=== PATIENT | female | born 1980 | race Caucasian/White ===

== ENCOUNTER 2017-01-18 17:11 | Emergency (ER) | payer MEDICARE ==
[2017-01-18] MEDS ORDERED: traMADol HCl 50 MG TAB ONE (18:08)
== END 2017-01-18 18:20 | disposition home or self-care (01) ==
LOC: MADERS 17:11
DX: T63.441A Toxic effect of venom of bees, accidental (unintentional), initial encounter (principal); F17.210 Nicotine dependence, cigarettes, uncomplicated
CPT/HCPCS: 96372; J1040

== ENCOUNTER 2018-03-05 16:21 | Emergency (ER) | payer MEDICARE ==
[2018-03-05] MEDS ORDERED: Adacel (T-DAP) 0.5 ML VIAL ONE (16:42)
[2018-03-05] MEDS ORDERED: HYDROcodone/Acetaminophen 5/325 mg Tablet ONE (16:42)
[2018-03-05] MEDS ORDERED: Acetaminophen 325 MG TAB ONE (16:42)
== END 2018-03-05 17:10 | disposition home or self-care (01) ==
LOC: MADERS 16:21
DX: S01.01XA Laceration without foreign body of scalp, initial encounter (principal); E11.9 Type 2 diabetes mellitus without complications; F17.210 Nicotine dependence, cigarettes, uncomplicated; W22.8XXA Striking against or struck by other objects, initial encounter
CPT/HCPCS: 12001; 90471; 90715

== ENCOUNTER 2018-06-10 18:02 | Emergency (ER) | payer MEDICARE ==
[2018-06-10] MEDS ORDERED: Adacel (T-DAP) 0.5 ML VIAL ONE (18:16)
[2018-06-10] MEDS ORDERED: Amoxicillin/Potassium Clav 875 MG TAB ONE (18:16)
[2018-06-10] MEDS ORDERED: Ibuprofen 800 MG TAB ONE (18:33)
== END 2018-06-10 18:30 | disposition home or self-care (01) ==
LOC: MADERS 18:02
DX: S51.852A Open bite of left forearm, initial encounter (principal); E11.9 Type 2 diabetes mellitus without complications; F17.210 Nicotine dependence, cigarettes, uncomplicated; Z79.84 Long term (current) use of oral hypoglycemic drugs; Z79.899 Other long term (current) drug therapy; W54.0XXA Bitten by dog, initial encounter
CPT/HCPCS: 90471; 90715

== ENCOUNTER 2018-07-03 12:33 | Emergency (ER) | payer MEDICARE ==
[2018-07-03 14:26] LABS: CKMB 1.6 ng/mL (0-6.6); Troponin I Less than 0.010 ng/mL (< 0.028)
--- NOTE | 2018-07-03 14:48 | RAD ---
CHEST TWO VIEWS: INDICATIONS: Cough. FINDINGS: There is patchy bilateral perihilar opacification. No effusion or discrete pneumothorax. The cardia c silhouette is normal in size. The osseous structures are intact. IMPRESSION: Patchy bilateral perihilar opacities may reflect bronchiolitis or edema. Recommend clinical correlation and, as necessary, imaging followup may be obtained. POS: DIANA
== END 2018-07-03 14:50 | disposition home or self-care (01) ==
LOC: MADERS 12:33
DX: J18.9 Pneumonia, unspecified organism (principal); E11.9 Type 2 diabetes mellitus without complications; F17.210 Nicotine dependence, cigarettes, uncomplicated; Z79.84 Long term (current) use of oral hypoglycemic drugs; Z79.899 Other long term (current) drug therapy
CPT/HCPCS: 36415; 71046; 82553; 84484; 87804; 93005

== ENCOUNTER 2018-07-08 09:04 | Emergency (ER) | payer MEDICARE ==
--- NOTE | 2018-07-08 10:43 | RAD ---
CHEST TWO VIEWS: Comparison: 07-03-18 History: Cough. Dyspnea. FINDINGS: Normal cardiac silhouette. The pulmonary vessels and hilum are normal. Costophrenic angles are clear. Stable interstitial changes without consolidation or mass. No pneumothorax or osseous abnormality. IMPRESSION: No acute cardiopulmonary process. POS: SHELDON
== END 2018-07-08 11:00 | disposition home or self-care (01) ==
LOC: MADERS 09:04
DX: J44.1 Chronic obstructive pulmonary disease with (acute) exacerbation (principal); E11.9 Type 2 diabetes mellitus without complications; F17.210 Nicotine dependence, cigarettes, uncomplicated
CPT/HCPCS: 71046; 87804; 93005; 94640; 94760; J7620

== ENCOUNTER 2019-10-14 12:36 | Emergency (ER) | payer MEDICARE ==
--- NOTE | 2019-10-14 13:49 | RAD ---
CHEST 2 VIEWS: Date: 10/14/2019 HISTORY: Cough, fever, wheezing. COMPARISON: Radiograph dated 07/08/18. FINDINGS: Abnormal increased interstitial markings throughout the lungs. No pneumothorax. No effusion. No acute osseous abnormality. IMPRESSION: Findings of reactive airway disease versus viral bronchial infectious process. POS: CET
== END 2019-10-14 13:19 | disposition home or self-care (01) ==
LOC: MADERS 12:36
DX: J11.1 Influenza due to unidentified influenza virus with other respiratory manifestations (principal); R06.2 Wheezing; E11.9 Type 2 diabetes mellitus without complications; F17.210 Nicotine dependence, cigarettes, uncomplicated
CPT/HCPCS: 36416; 71046; J7620

== ENCOUNTER 2020-01-10 14:36 | Emergency (ER) | payer MEDICARE | END 2020-01-10 15:20 | disposition home or self-care (01) | LOC: MADERS 14:36 | DX: K02.9 Dental caries, unspecified (principal); E78.5 Hyperlipidemia, unspecified; I10 Essential (primary) hypertension; E11.9 Type 2 diabetes mellitus without complications; F17.210 Nicotine dependence, cigarettes, uncomplicated | CPT/HCPCS: 99282 ==

== ENCOUNTER 2020-05-14 12:09 | Emergency (ER) | payer MEDICARE ==
--- NOTE | 2020-05-14 12:43 | RAD ---
XR Hand Rt 3 View STANDARD HISTORY: Right hand pain FINDINGS: No acute fracture or dislocation is identified. There is an old fracture of the ulnar styloid.
== END 2020-05-14 13:24 | disposition home or self-care (01) ==
LOC: MADERS 12:09
DX: M79.641 Pain in right hand (principal); E78.5 Hyperlipidemia, unspecified; I10 Essential (primary) hypertension; E11.9 Type 2 diabetes mellitus without complications; F17.210 Nicotine dependence, cigarettes, uncomplicated; Z79.899 Other long term (current) drug therapy

== ENCOUNTER 2021-01-21 09:01 | Emergency (ER) | payer MEDICARE | END 2021-01-21 10:00 | disposition home or self-care (01) | LOC: MADERS 09:01 | DX: K08.89 Other specified disorders of teeth and supporting structures (principal); K02.9 Dental caries, unspecified; E78.5 Hyperlipidemia, unspecified; I10 Essential (primary) hypertension; E11.9 Type 2 diabetes mellitus without complications; F17.210 Nicotine dependence, cigarettes, uncomplicated; Z79.899 Other long term (current) drug therapy | CPT/HCPCS: 99283 ==

== ENCOUNTER 2021-04-07 14:08 | Emergency (ER) | payer MEDICARE, MEDICAID ==
[2021-04-07 17:00] LABS: #Basophils 0.1 thou/uL (0.0-0.2); #Eosinphils 0.1 thou/uL (0.0-0.7); #Lymphocytes 2.6 thou/uL (1.20-3.40); #Monocytes 0.5 thou/uL (0.11-0.59); #Neutrophils 6.7 thou/uL (1.40-6.50); %Basophils 0.7 % (0.0-1.0); %Eosinophils 1.4 % (0.0-10.0); %Lymphocytes 26.1 % (21.0-51.0); %Monocytes 4.7 % (0.0-10.0); Hemoglobin 14.7 g/dL (12.0-16.0); Mean Corpuscular HGB CONC 31.5 g/dL (32.0-36.0); Mean Corpuscular Hemoglobin 29.2 pg (27.0-31.0); Mean Corpuscular Volume 92.7 fL (78.0-98.0); Mean Platelet Volume 9.5 fL (7.4-10.4); Platelet Count 233 thou/uL (130-400); RBC Distribution Width 13.1 % (11.5-14.5); Red Blood Cell (RBC) Count 5.04 mill/uL (4.20-5.40)
[2021-04-07 17:11] LABS: Anion Gap 16 mmol/L (10-20); BUN (Urea Nitrogen) Less than 4 mg/dL (7.0-18.7); Calc. Creatinine Clearance 0 mL/min (70-130); Carbon Dioxide 24 mmol/L (22-29); Chloride 105 mmol/L (98-107); Glucose 84 mg/dL (70-105); Potassium 3.6 mmol/L (3.5-5.1); Sodium 141 mmol/L (136-145)
== END 2021-04-07 18:26 | disposition home or self-care (01) ==
LOC: MADERS 14:08
DX: M48.02 Spinal stenosis, cervical region (principal); E11.9 Type 2 diabetes mellitus without complications; I10 Essential (primary) hypertension; E78.5 Hyperlipidemia, unspecified; F17.210 Nicotine dependence, cigarettes, uncomplicated; R29.700 NIHSS score 0; Z79.899 Other long term (current) drug therapy
CPT/HCPCS: 36415; 70450; 72125; 80048; 85025

== ENCOUNTER 2022-04-20 11:02 | Emergency (ER) | payer MEDICARE, MEDICAID | END 2022-04-20 11:57 | disposition home or self-care (01) | LOC: MADERS 11:02 | DX: J06.9 Acute upper respiratory infection, unspecified (principal); E11.9 Type 2 diabetes mellitus without complications; I10 Essential (primary) hypertension; E78.5 Hyperlipidemia, unspecified; F17.210 Nicotine dependence, cigarettes, uncomplicated; Z79.899 Other long term (current) drug therapy | CPT/HCPCS: 99283 ==

== ENCOUNTER 2022-09-22 12:09 | Emergency (ER) | payer MEDICARE, MEDICAID ==
[2022-09-22] MEDS ORDERED: Ketorolac Tromethamine 60 MG/2 ML VIAL ONE (14:40)
== END 2022-09-22 14:51 | disposition home or self-care (01) ==
LOC: MADERS 12:09
DX: M79.642 Pain in left hand (principal); M25.561 Pain in right knee; E78.00 Pure hypercholesterolemia, unspecified; I10 Essential (primary) hypertension; E11.9 Type 2 diabetes mellitus without complications; F17.210 Nicotine dependence, cigarettes, uncomplicated; W22.8XXA Striking against or struck by other objects, initial encounter; Z79.899 Other long term (current) drug therapy
CPT/HCPCS: J1885

== ENCOUNTER 2025-07-06 13:10 | Emergency (ER) | payer OTHER, MEDICARE, MEDICAID ==
[~2025-07-06 13:10] MED LIST: Iopamidol 370 76% 100 ML VIAL ONE
[2025-07-06 14:09] LABS: INR-International Normal Ratio 1.0; PTT 28.8 sec (22.9-36.1); Prothrombin Time 13.0 sec (12.0-14.7)
[2025-07-06 14:12] LABS: BHCG - Serum Negative (NEGATIVE); Pregs Control Background? CLEAR/WHITE (CLR/WHITE); Pregs Control Bar Appear? YES (CONTROL BAR)
[2025-07-06 14:17] LABS: Hematocrit 45.9 % (36.0-47.0); Hemoglobin 14.4 g/dL (12.0-16.0); MDiff Complete? YES; Mean Corpuscular Hemoglobin 28.6 pg (27.0-31.0); Mean Corpuscular Volume 91.5 fl (78.0-98.0); Platelet Adequacy Comment Appears Adequate; Platelet Count 190 10x3/uL (130-400); Red Blood Cell (RBC) Count 5.02 mill/uL (4.20-5.40); White Blood Cell (WBC) Count 7.0 10x3/uL (4.8-10.8)
[2025-07-06 14:21] LABS: ALT (SGPT) 31 U/L (Less than 34); AST (SGOT) 41 U/L (11-34); Albumin 3.8 g/dL (3.1-4.5); Alkaline Phosphatase 110 U/L (40-110); Anion Gap 16 mmol/L (10-20); BUN (Urea Nitrogen) 7 mg/dL (7.0-18.7); Bilirubin, Total 0.3 mg/dL (0.3-1.2); Calc. Creatinine Clearance 0 mL/min (70-130); Calcium 8.9 mg/dL (7.8-10.44); Carbon Dioxide 24 mmol/L (22-29); Chloride 107 mmol/L (98-107); Globulin 3.4 g/dL (2.4-3.5); Glucose 102 mg/dL (70-105); Potassium 4.3 mmol/L (3.5-5.1); Sodium 143 mmol/L (136-145)
== END 2025-07-06 16:12 | disposition home or self-care (01) ==
LOC: MADERS 13:10
DX: S39.012A Strain of muscle, fascia and tendon of lower back, initial encounter (principal); I10 Essential (primary) hypertension; E11.9 Type 2 diabetes mellitus without complications; F17.210 Nicotine dependence, cigarettes, uncomplicated; E78.00 Pure hypercholesterolemia, unspecified; V89.0XXA Person injured in unspecified motor-vehicle accident, nontraffic, initial encounter; Z79.899 Other long term (current) drug therapy
CPT/HCPCS: 70450; 71260; 72125; 74177; 80053; 84703; 85025; 85610; 85730; 96374; G0390; J2270; Q9967